=== PATIENT | male | born 1950 | race Caucasian/White ===

== ENCOUNTER 2017-12-25 08:58 | Emergency (ER) | payer OTHER, MEDICARE ==
[~2017-12-25] VITALS: Ht 175.3 cm; Wt 90.4 kg
[~2017-12-25 08:58] MED LIST: ALLERGY MEDICATION PO; ALTACE; ALTACE10 MG PO; ALTACE2.5 MG PO; ANALGESIC325 M1 PO; ASPIRIN EC325 MG PO; ATORVASTATIN CA80 MG PO; CLOPIDOGREL75 MG PO; JANUVIA25 M1 PO; LIPITOR20 MG PO; LO-DOSE ASPIRIN81 M1 PO; METOPROLOL; NITROSTAT0.4 MG SL; TOPROL XL50 MG PO; VITAMIN B-12500 MC5 SL; VITAMIN B-650 MG PO; VITAMIN B6 PO
[2017-12-25 09:35] LABS: HEMATOCRIT 38.6 % (38.0-50.0); HEMOGLOBIN 13.6 G/DL (12.5-16.6); MCH 31.8 PG (29.0-34.0); MCHC 35.2 G/DL (30.0-36.0); MCV 90.2 FL (86-99); PLATELET COUNT 276 K/uL (156-360); RBC DIS.WIDTH-CV 12.5 % (11.8-14.6); RBC DIS.WIDTH-SD 40.4 % (39-53); RED BLOOD COUNT 4.28 M/uL (4.00-5.50)
[2017-12-25 09:44] LABS: CHLORIDE 112 mEq/L (99-109); POTASSIUM 4.3 mEq/L (3.7-5.4); SODIUM 143 mEq/L (136-147)
[2017-12-25 09:46] LABS: GLUCOSE 138 mg/dL (70-99)
[2017-12-25 09:50] LABS: CREATININE 1.4 mg/dL (0.6-1.3); GFR ESTIMATE (CALCULATED) 53 mL/min/ (58.99-99999)
[2017-12-25 09:51] LABS: UREA NITROGEN (BUN) 16 mg/dL (9-23)
[2017-12-25 09:57] LABS: TROP-I INTERPRETATION NEGATIVE; TROPONIN-I 0.03 ng/mL (0.0-0.30)
[2017-12-25 12:25] LABS: INTER. NORMALIZED RATIO 1.1
[2017-12-25 12:28] LABS: PTT 27.8 SEC (25-37)
[2017-12-25 12:58] VITALS: BP 160/85
[2017-12-25 13:19] LABS: TROP-I INTERPRETATION NEGATIVE; TROPONIN-I 0.02 ng/mL (0.0-0.30)
[2017-12-26] MEDS ORDERED: MEDROL DOSEPAK4 MG PO (23:04)
[2017-12-26] MEDS ORDERED: VENTOLIN HFA18 GM IH (23:04)
== END 2017-12-25 12:59 | disposition left against medical advice (07) ==
LOC: EME 08:58
PROVIDERS: Nurse Practitioner Family
DX: R06.02 Shortness of breath (principal); I51.89 Other ill-defined heart diseases; N28.9 Disorder of kidney and ureter, unspecified; R07.89 Other chest pain; R05 Cough; R94.31 Abnormal electrocardiogram [ECG] [EKG]; I10 Essential (primary) hypertension; I25.2 Old myocardial infarction; Z95.5 Presence of coronary angioplasty implant and graft; Z53.20 Procedure and treatment not carried out because of patient's decision for unspecified reasons
CPT/HCPCS: 71046; 80048; 83880; 84484; 85027; 85610; 85730; 93005; 94640; 99281; 99282

== ENCOUNTER 2017-12-26 19:00 | Emergency (ER) | payer OTHER, MEDICARE ==
[~2017-12-26] VITALS: Ht 177.8 cm; Wt 91.6 kg
[2017-12-26 21:24] LABS: HEMATOCRIT 37.4 % (38.0-50.0); HEMOGLOBIN 13.3 G/DL (12.5-16.6); MCH 31.8 PG (29.0-34.0); MCHC 35.6 G/DL (30.0-36.0); MCV 89.5 FL (86-99); PLATELET COUNT 270 K/uL (156-360); RBC DIS.WIDTH-CV 12.4 % (11.8-14.6); RBC DIS.WIDTH-SD 40.4 % (39-53); RED BLOOD COUNT 4.18 M/uL (4.00-5.50); WHITE BLOOD COUNT 10.2 K/uL (4.1-10.2)
[2017-12-26 21:33] LABS: ALBUMIN 4.2 g/dL (3.2-4.8)
[2017-12-26 21:34] LABS: CHLORIDE 108 mEq/L (99-109); SODIUM 140 mEq/L (136-147)
[2017-12-26 21:36] LABS: GLUCOSE 131 mg/dL (70-99)
[2017-12-26 21:38] LABS: TOTAL BILIRUBIN 0.9 mg/dL (0.0-1.0)
[2017-12-26 21:39] LABS: ALKALINE PHOSPHATASE 130 IU/L (3-129)
[2017-12-26 21:40] LABS: CREATININE 1.2 mg/dL (0.6-1.3); GFR ESTIMATE (CALCULATED) > 59 mL/min/ (58.99-99999)
[2017-12-26 21:41] LABS: AST (GOT) 28 IU/L (2-34); UREA NITROGEN (BUN) 16 mg/dL (9-23)
[2017-12-26 21:42] LABS: ALT (GPT) 30 IU/L (3-49)
[2017-12-26] MEDS ORDERED: VENTOLIN HFA18 GM IH (23:04)
[2017-12-26] MEDS ORDERED: MEDROL DOSEPAK4 MG PO (23:04)
[2017-12-26 23:12] VITALS: BP 170/89
== END 2017-12-26 23:20 | disposition home or self-care (01) ==
LOC: EME 19:00
PROVIDERS: Physician Assistant
DX: J21.9 Acute bronchiolitis, unspecified (principal); I25.2 Old myocardial infarction; Z95.5 Presence of coronary angioplasty implant and graft; Z87.442 Personal history of urinary calculi; Z88.2 Allergy status to sulfonamides
CPT/HCPCS: 71046; 71275; 80053; 85027; 94640; 99281; 99284; J7512

== ENCOUNTER 2018-03-14 05:28 | Emergency (ER) | payer OTHER, MEDICARE ==
[~2018-03-14] VITALS: Ht 175.3 cm; Wt 85.1 kg
[~2018-03-14 05:28] MED LIST changes: +MEDROL DOSEPAK4 MG PO; +VENTOLIN HFA18 GM IH
[2018-03-14 05:58] LABS: HEMATOCRIT 36.2 % (38.0-50.0); HEMOGLOBIN 12.7 G/DL (12.5-16.6); MCH 31.9 PG (29.0-34.0); MCHC 35.1 G/DL (30.0-36.0); PLATELET COUNT 394 K/uL (156-360); RBC DIS.WIDTH-CV 11.7 % (11.8-14.6); RBC DIS.WIDTH-SD 39.1 % (39-53); RED BLOOD COUNT 3.98 M/uL (4.00-5.50); WHITE BLOOD COUNT 17.7 K/uL (4.1-10.2)
[2018-03-14 06:10] LABS: CHLORIDE 105 mEq/L (99-109); POTASSIUM 4.1 mEq/L (3.7-5.4); SODIUM 136 mEq/L (136-147)
[2018-03-14 06:11] LABS: GLUCOSE 147 mg/dL (70-99)
[2018-03-14 06:15] LABS: CREATININE 1.4 mg/dL (0.6-1.3); GFR ESTIMATE (CALCULATED) 53 mL/min/ (58.99-99999)
[2018-03-14 06:16] LABS: UREA NITROGEN (BUN) 20 mg/dL (9-23)
[2018-03-14 06:19] LABS: TROP-I INTERPRETATION NEGATIVE; TROPONIN-I 0.01 ng/mL (0.0-0.30)
[2018-03-14] MEDS ORDERED: LEVAQUIN750 MG PO (08:02)
[2018-03-14] MEDS ORDERED: VENTOLIN HFA18 GM IH (08:02)
[2018-03-14 08:17] VITALS: BP 127/69
== END 2018-03-14 08:27 | disposition left against medical advice (07) ==
LOC: EME 05:28
DX: J18.9 Pneumonia, unspecified organism (principal); J45.909 Unspecified asthma, uncomplicated; I25.2 Old myocardial infarction; Z95.5 Presence of coronary angioplasty implant and graft; Z87.442 Personal history of urinary calculi; Z88.2 Allergy status to sulfonamides
CPT/HCPCS: 71046; 80048; 84484; 85027; 93005; 94640; 99281; 99284